=== PATIENT | female | born 1970 | race African-American/Black ===

== ENCOUNTER 2019-01-30 11:31 | Emergency (ER) | payer MEDICAID, OTHER ==
[~2019-01-30] VITALS: Ht 172.7 cm; Wt 64.0 kg
[2019-01-30] MEDS ORDERED: SODIUM CHLORIDE 0.9% 1,000 ML IV ONE (11:56)
[2019-01-30] MEDS ORDERED: ACETAMINOPHEN 325MG TABLET PO ONE (12:00)
[2019-01-30] MEDS ORDERED: LEVETIRACETAM 1000MG/100ML 100 ML IV ONE (12:00)
[2019-01-30 12:32] LABS: BASOPHILS % 0.7 % (0.0-2.0); EOSINOPHILS % 0.3 % (0.0-5.0); HEMATOCRIT. 41.5 % (36.0-48.0); HEMOGLOBIN. 13.4 g/dL (12.0-16.0); LYMPHOCYTES % 25.3 % (20.0-50.0); MEAN CORPUSCULAR VOLUME 77.8 fL (81.0-99.0); MEAN PLATELET VOLUME 7.7 fl (7.4-10.4); MONOCYTES % 5.3 % (2.0-8.0); NEUTROPHILS % 68.4 % (40.0-76.0); PLATELET 233 x1000/uL (130-400); RED BLOOD CELL COUNT 5.34 mill/uL (4.2-5.4); RED CELL DISTRIBUTION WIDTH 14.8 % (11.6-14.6)
[2019-01-30 12:38] LABS: CHLORIDE 105 mEq/L (98-107)
[2019-01-30 12:44] LABS: ETHANOL BLOOD < 10 mg/dL
[2019-01-30] MEDS ORDERED: PHENYTOIN SODIUM 1,000 MG in SODIUM CHLORIDE 0.9% 100 ML IV NR (15:00)
[2019-01-30] MEDS ORDERED: KETOROLAC 15MG/ML VIAL IV ONE (16:45)
[2019-01-30 17:55] VITALS: BP 120/79
== END 2019-01-30 18:00 | disposition home or self-care (01) ==
LOC: ER 11:31
DX: G40.909 Epilepsy, unspecified, not intractable, without status epilepticus (principal); R03.0 Elevated blood-pressure reading, without diagnosis of hypertension
CPT/HCPCS: 36415; 80053; 80185; 80320; 82962; 85025; 96365; 96367; 96375; 99283; C1893; J1165; J1885; J1953; J7030; J7050; Z7610; G0480